=== PATIENT | female | born 1990 | race Caucasian/White ===

== ENCOUNTER 2024-04-21 07:54 | Outpatient (AMB) | payer OTHER, SELFPAY ==
--- OUTSIDE RECORDS SUMMARY | 2024-04-21 07:57 | XMS_ITS | Clinical Summary ---
Author Organization [facility] Address [address] [place] [address] Care Team Providers Care Family Nurse Practitioner Name Role Phone Melissa Paulino NP Primary Care Provider [phone]- [phone] Allergies No known active allergies Medications No known medications Family History Medical History Relation Name Comments Ulcerative colitis Brother Colon cancer Neg Hx Crohn's disease Neg Hx Relation Name Status Comments Brother Alive Social History Tobacco Use Types Packs/Day Years Used Date Smoking Tobacco: Never Smokeless Tobacco: Never Alcohol Use Standard Drinks/Week Comments No 0 (1 standard drink = 0.6 oz pur e alcohol) Sex and Gender Information Value Date Recorded Sex Assigned at Not on file Gender Identity Not on file Sexual Orientation Not on file Last Filed Vital Signs Vital Sign Reading Time Taken Comments Blood Pressure 106/72 02/04/2017 10:20 AM EST Pulse 79 02/04/2017 10:20 AM EST Temperature 36.2 ??C (97.2 ??F) 02/04/2017 8:14 AM ES T Respiratory Rate 15 02/04/2017 10:20 AM EST Oxygen Saturation 99% 02/04/2017 10:20 AM EST Inhaled Oxygen Concentration - - Weight 97.5 kg (215 lb) 02/03/2017 1:23 PM EST Height 149.9 cm (4' 11 ) 02/03/2017 1:23 PM EST Body Mass Index 43.42 02/03/2017 1:23 PM EST Plan of Treatment Health Maintenance Due Date Last Done Comments Hepatitis B Vaccines (1 of 3 - 3-dose series) 1991 Hepatitis C Screening 1991 COVID-19 Vaccine (#1) 05/28/1992 Depression Screening 2003 Preventative Health Evaluation 11/27/2009 DTap / Tdap / Td (1 - Tdap) 11/27/2010 Cervical Cancer Screening (P ap Smear) 11/27/2012 Influenza Vaccine (#1) 2023 Pneumococcal Vaccine Aged Out No long er eligible based on patient's age to complete this topic RSV Ped < 20 months Aged Out No longe r eligible based on patient's age to complete this topic Advance Directives For more information, please contact: [phone] Latest Code Status on File Code Status Date Activated Date Inactivated Comments Full Code 02/04/2017 10:44 AM 02/04/2017 5:04 PM Th is code status was ascertained in the following way: discussion with patient . Care Teams Family Nurse Practitioner Relationship Specialty Start Date End Date Melissa Paulino NP [address] [place] [address] PCP - General Nurse Practitioner 05/19/16
--- OUTSIDE RECORDS SUMMARY | 2024-04-21 07:57 | XMS_ITS ---
Author Name [facility] Organization Unknown Results Test Name/Text Value Interpretation Date Range Source AST SerPl-cCnc 25U/L Normal [id number] 10 - 50 HH CCT ALT SerPl-cCnc 44U/L Normal 10 - 50 HH CCT Creat SerPl-mCnc 1.1mg/dL Normal 0.4 - 1.1 [facility] Globulin Ser Calc-mCnc 1.9g/dL Normal 1.5 - 3.9 [facility] CO2 SerPl-sCnc 26mmol/L Normal 22 - 33 HH CCT Albumin/Glob SerPl 2.3Ratio Normal 1 - 3 [facility] Anion Gap Bld-sCnc 13 Normal 7 - 17 [facility] Potassium SerPl-sCnc 4.3mmol/L Normal 3.4 - 5.3 [facility] Bilirub SerPl-mCnc 0.6mg/dL Normal 0.2 - 1 [facility] Calcium SerPl-mCnc 9.3mg/dL Normal 8.7 - 10 .5 [facility] BUN SerPl-mCnc 12mg/dL Normal 8 - 21 HH CCT ALP SerPl-cCnc 103U/L Normal 32 - 122 HH CCT GFR/BSA.pred SerPlBld RES-GOD-PgEBoq 58 Below low normal [id number] 59 - [facility] Chloride SerPl-sCnc 101mmol/L Normal [id number] 98 - 10 7 [facility] BUN/Creat SerPl 11Ratio Normal [id number] 10 - 25 H [facility] Albumin SerPl-mCnc 4.4g/dL Normal [id number] 3.5 - 5 [facility] Prot SerPl-mCnc 6.3g/dL Normal 6.3 - 8.3 H [facility] Glucose SerPl-mCnc 96mg/dL Normal [id number] 65 - 99 [facility] Sodium SerPl-sCnc 140mmol/L Normal [id number] 136 - 145 [facility] Neutrophils num Bld Auto 4.1Thou/uL Normal [id number] 2 - 7.5 [facility] WBC num Bld Auto 5.4Thou/uL Normal [id number] 4 - 11 [facility] MCHC RBC Auto-mCnc 33g/dL Normal [id number] 30 - 36 [facility] Hct VFr Bld Auto 45.2% Normal [id number] 35 - 47 [facility] RBC num Bld Auto 5.11Mil/uL Normal [id number] 4 - 5.4 [facility] RDW RBC Auto-Rto 12.7% Normal [id number] 11.5 - 14. 5 [facility] PMV Bld Auto 9.2fL Normal [id number] 7.5 - 12.[address] MCH RBC Qn Auto 29.2pg Normal [id number] 27 - 31 H [facility] Mixed Mononuclear, Absolute 1Thou/uL Normal [id number] 0.2 - 1.9 [facility] Platelet num Bld Auto 160Thou/uL Normal [id number] 150 - 450 [facility] Neutrophils/leuk NFr Bld Auto 74.9% Normal [id number] [facility] Mixed Mononuclear 11.4% Normal [id number] [facility] MCV RBC Auto 89fL Normal [id number] 80 - 100 [facility] T Lymphocytes/leuk NFr Bld Auto 13.7% Normal [id number] [facility] Lymphocytes num Bld Auto 1Thou/uL Below low normal [id number] 1.5 - 4.5 [facility] Hgb Bld-mCnc 14.9g/dL Normal [id number] 11.7 - 15.7 HH CCT Monocytes # Bld Auto 490cells/uL Normal [id number] 200 - 950 [facility] PMV Bld Bandar-Barrett 10fL Normal [id number] 7.5 - 12 .5 [facility] Neutrophils # Bld Auto 4486cells/uL Normal [id number] 1500 - 7800 [facility] Eosinophil # Bld Auto 58cells/uL Normal [id number] 15 - 500 [facility] MCHC RBC Auto-mCnc 33g/dL Normal [id number] 32 - 36 [facility] Basophils # Bld Auto 29cells/uL Normal [id number] 0 - 2 00 [facility] Monocytes/leuk NFr Bld Auto 6.8% Normal [id number] [facility] WBC # Bld Auto 7.2Thousand/uL Normal [id number] 3.8 - 1 0.8 [facility] Hct VFr Bld Auto 46% Above high normal 35 - 45 [facility] RDW RBC Auto-Rto 13.1% Normal [id number] 11 - 15 [facility] Eosinophil/leuk NFr Bld Auto 0.8% Normal [id number] [facility] MCH RBC Qn Auto 30.2pg Normal [id number] 27 - 33 Q [facility] Basophils/leuk NFr Bld Auto 0.4% Normal [id number] [facility] Lymphocytes # Bld Auto 2138cells/uL Normal [id number] 850 - 3900 [facility] RBC # Bld Auto 5.03Million/uL Normal [id number] 3.8 - 5 .1 [facility] Neutrophils/leuk NFr Bld Auto 62.3% Normal [id number] [facility] Platelet # Bld Auto 226Thousand/uL Normal 14 0 - 400 [facility] MCV RBC Auto 91.5fL Normal [id number] 80 - 100 [facility] T Lymphocytes/leuk NFr Bld Auto 29.7% Normal [id number] [facility] Hgb Bld-mCnc 15.2g/dL Normal 11.7 - 15.5 QU EST HbA1c MFr Bld 6%oftotalHgb Above high normal [id number] - 5.7 [facility] LDLc SerPl Calc-mCnc 201mg/dL(calc) Above high normal [id number] [facility] Cholest/HDLc SerPl 4.5(calc) Normal [id number] - 5 [facility] HDLc SerPl-mCnc 64mg/dL Normal [id number] - Q [facility] NonHDLc SerPl-mCnc 222mg/dL(calc) Above high normal [id number] - 130 [facility] Cholest SerPl-mCnc 286mg/dL Above high normal [id number] - 200 [facility] Trigl SerPl-mCnc 92mg/dL Normal [id number] - 150 [facility] TSH SerPl-aCnc 3.08mIU/L Normal [id number] 0.4 - 4.5 QU EST BUN/Creat SerPl SEE NOTE: Normal [id number] 6 - 22 Q [facility] eGFRcr SerPlBld CKD-EPI 2021 63mL/min/1.73m 2 Normal [id number] - [facility] CO2 SerPl-sCnc 27mmol/L Normal [id number] 20 - 32 QU EST Sodium SerPl-sCnc 140mmol/L Normal [id number] 135 - 146 [facility] Chloride SerPl-sCnc 102mmol/L Normal [id number] 98 - 11 0 [facility] Glucose SerPl-mCnc 94mg/dL Normal [id number] 65 - 99 [facility] BUN SerPl-mCnc 21mg/dL Normal [id number] 7 - 25 QU EST Potassium SerPl-sCnc 4.2mmol/L Normal [id number] 3.5 - 5.3 [facility] Creat SerPl-mCnc 1.02mg/dL Normal [id number] 0.5 - 1.05 [facility] Calcium SerPl-mCnc 9.9mg/dL Normal [id number] 8.6 - 10 .4 [facility] Vit B12 SerPl-mCnc 356pg/mL Normal [id number] 200 - 11 00 [facility] Magnesium SerPl-mCnc 2mg/dL Normal [id number] 1.5 - 2.5 [facility] TIBC SerPl-mCnc 390mcg/dL(calc ) Normal [id number] 250 - 450 [facility] Iron Satn MFr SerPl 34%(calc) Normal [id number] 16 - 45 [facility] Iron SerPl-mCnc 133mcg/dL Normal [id number] 45 - 160 Q [facility] Ferritin SerPl-mCnc 38ng/mL Normal [id number] 16 - 23 2 [facility] Platelet # Bld Auto 206Thousand/uL Normal [id number] 14 0 - 400 [facility] Hct VFr Bld Auto 49.5% Above high normal [id number] 35 - 45 [facility] Basophils # Bld Auto 29cells/uL Normal [id number] 0 - 2 00 [facility] Eosinophil # Bld Auto 80cells/uL Normal [id number] 15 - 500 [facility] MCV RBC Auto 90.5fL Normal [id number] 80 - 100 [facility] WBC # Bld Auto 7.3Thousand/uL Normal [id number] 3.8 - 1 0.8 [facility] Eosinophil/leuk NFr Bld Auto 1.1% Normal [id number] [facility] Hgb Bld-mCnc 16.3g/dL Above high normal [id number] 11.7 - 15.5 [facility] Lymphocytes # Bld Auto 2205cells/uL Normal [id number] 850 - 3900 [facility] PMV Bld Bandar-Barrett 10.7fL Normal [id number] 7.5 - 12 .5 [facility] Monocytes # Bld Auto 482cells/uL Normal [id number] 200 - 950 [facility] Lymphocytes/leuk NFr Bld Auto 30.2% Normal [id number] [facility] MCH RBC Qn Auto 29.8pg Normal [id number] 27 - 33 Q [facility] RBC # Bld Auto 5.47Million/uL Above high normal [id number] 3.8 - 5.1 [facility] RDW RBC Auto-Rto 13% Normal [id number] 11 - 15 [facility] Neutrophils/leuk NFr Bld Auto 61.7% Normal [id number] [facility] Monocytes/leuk NFr Bld Auto 6.6% Normal [id number] [facility] MCHC RBC Auto-mCnc 32.9g/dL Normal [id number] 32 - 36 [facility] Neutrophils # Bld Auto 4504cells/uL Normal [id number] 1500 - 7800 [facility] Basophils/leuk NFr Bld Auto 0.4% Normal [id number] [facility] History of Medication Use Medication Directions Dispensed Refills Start Date End Date Stat us azithromycin 250 mg tablet 5 completed rosuvastatin 5 mg tablet 5 completed benzonatate 100 mg capsule Take 1 capsule 3 times a day by oral route for 10 days. 03/31/2024 active benzonatate 100 mg capsule active amoxicillin 875 mg-potassium clavulanate 125 mg tablet active Etodolac 400mg Tablet 08/31/2022 active FLUoxetine (PROzac) 20 MG capsule Take 1 capsule (20 mg total) by mouth daily. 08/06/2022 4 active clascoterone (Winlevi) 1 % cream APPLY FACE TWICE A DAY ] 12/14/2022 5 aborted triamcinolone acetonide 40 mg/mL suspension for injection Take 40 mg by injection route. 05/28/2023 4 active fluoxetine 20 mg capsule TAKE 1 CAPSULE BY MOUTH EVERY DAY active biotin 1,000 mcg tablet,chewable Chew by mouth. activ e cyclobenzaprine 10 mg tablet take 1 tablet (10 mg) by oral route at bedtime as needed for muscle tightness 01/31/2020 1 completed benzonatate 200 mg capsule 200 mg 3 times a day by oral route. 05/29/2022 4 completed prochlorperazine maleate 10 mg tablet 5 mg every 6 hours by oral route. 12/10/2020 4 completed fluconazole 100 mg tablet TAKE 1 TABLET BY MOUTH DAILY FOR 10 DAYS. 4 completed fluticasone propionate 50 mcg/actuation nasal spray,suspension SPRAY 1 SPRAY INTO EACH NOSTRIL EVERY DAY active benzonatate 200 mg capsule TAKE 1 CAPSULE BY MOUTH THREE TIMES A DAY NEEDED FOR COUGH 4 completed pantoprazole 20 mg tablet,delayed release take 1 tablet (20 mg) by oral route once daily 05/22/2021 2 completed gabapentin (NEURONTIN) 300 MG capsule Take 1 capsule (300 mg total) by mouth 2 times a day. take 3 tablets per day first week, then taper as tolerated to 200mg. 05/08/2021 4 aborted etodolac 400 mg tablet Take 400 mg twice a day by oral route. 05/21/2022 4 completed BinaxNOW COVID-19 Ag Self Test kit 4 completed LORazepam (ATIVAN) 0.5 MG tablet Take 1 tablet (0.5 mg total) by mouth 3 times daily (every 8 hours) as needed for anxiety. 12/10/2020 4 active clotrimazole-betametha sone (LOTRISONE) cream APPLY THIN FILM EXTERNALLY TO AFFECTED AREA 2 TIMES DAILY NEEDED 05/25/2022 active Veozah 45 MG tablet Take 1 tablet (45 mg total) by mouth daily. 08/03/2023 active valacyclovir 1 gram tablet Take 1 Tablet ORAL three times each day for 7 days. 11/13/2016 7 completed fluticasone propionate (FLONASE) 50 mcg/actuation nasal spray SPRAY 1 SPRAY INTO EACH NOSTRIL EVERY DAY 5 aborted meloxicam (MOBIC) 15 MG tablet Take 1 tablet (15 mg total) by mouth daily. for 30 days 07/30/2023 active fluticasone propionate 50 mcg/actuation nasal spray,suspension 1 {spray} by nasal route. 05/29/2022 4 completed gabapentin (NEURONTIN) 100 MG capsule Take 3 capsules (300 mg total) by mouth daily. take 3 tablets per day first week, then taper as tolerated to 200mg. 06/01/2022 4 active meloxicam (MOBIC) 15 mg tablet Take 1 tablet (15 mg total) by mouth daily. for 30 days 07/30/2023 5 aborted valACYclovir (VALTREX) 500 MG tablet TAKE 1 TABLET (500 MG TOTAL) BY MOUTH DAILY. 08/06/2022 active clobetasol 0.05 % topical ointment APPLY A THIN FILM EXTERNALLY TO CLEAN, DRY SKIN TWICE DAILY UP TO 4 WEEKS active meloxicam 15 mg tablet Take 1 tablet every day by oral route as needed. 07/30/2023 4 active Kenalog 10 mg/mL suspension for injection Take 2 mL by injection route. 01/13/2023 4 active Herceptin 150 mg intravenous solution infuse 2 mg/kg over 30 minute(s) by intravenous route once every 3 weeks 10/22/2021 3 completed clobetasoL (TEMOVATE) 0.05 % ointment Apply topically 2 (two) times a day. APPLY A THIN FILM EXTERNALLY TO CLEAN, DRY SKIN TWICE DAILY UP TO 4 WEEKS 12/29/2023 active gabapentin 100 mg capsule TAKE 3 CAPSULES (300 MG TOTAL) BY MOUTH DAILY FOR FIRST WEEK, THEN TAPER TOLERATED TO 200MG. 4 completed LORazepam (ATIVAN) 0.5 mg tablet as needed. 12/10/2020 active fluconazole 100 mg tablet active proCHLORPERAZINE (COMPAZINE) 10 MG tablet Take 0.5 tablets (5 mg total) by mouth 4 times daily (every 6 hours) as needed. 12/10/2020 4 active meloxicam 15 mg tablet active Kenalog 10 mg/mL suspension for injection active oxyCODONE (ROXICODONE) 5 MG immediate release tablet Take 1 tablet (5 mg total) by mouth 4 times daily (every 6 hours) as needed for moderate pain or severe pain. Max Daily Amount: 20 mg 12/25/2020 3 active acetaminophen (TYLENOL) 500 MG tablet Take 2 tablets (1,000 mg total) by mouth 4 times daily (every 6 hours) as needed for mild pain. 11/05/2020 active clobetasol (TEMOVATE) 0.05 % ointment APPLY A THIN FILM EXTERNALLY TO CLEAN, DRY SKIN TWICE DAILY UP TO 4 WEEKS 05/25/2022 active letrozole (FEMARA) 2.5 MG tablet Take 1 tablet (2.5 mg total) by mouth daily 06/13/2021 active valACYclovir (VALTREX) 500 mg tablet Take 1 tablet (500 mg total) by mouth 1 (one) time each day. 01/24/2024 active PANTOprazole (PROTONIX) 40 MG EC tablet Take 1 tablet (40 mg total) by mouth every morning. 06/25/2020 active Probiotic 04/16/2020 4 active FLUoxetine (PROzac) 20 mg capsule Take 1 capsule (20 mg total) by mouth daily. 08/09/2023 4 aborted clobetasol 0.05 % topical ointment APPLY A THIN FILM EXTERNALLY TO CLEAN, DRY SKIN TWICE DAILY UP TO 4 WEEKS active clotrimazole 10 mg chelsi DISSOLVE 1 CHELSI SLOWLY IN THE MOUTH 5 TIMES A DAY FOR 14 DAYS. 4 completed FLUoxetine (PROzac) 20 mg capsule Take 1 capsule (20 mg total) by mouth 1 (one) time each day. 01/24/2024 active clotrimazole-betametha sone (LOTRISONE) 1-0.05 % cream Apply topically 2 (two) times a day if needed (APPLY THIN FILM EXTERNALLY TO AFFECTED AREA 2 TIMES DAILY NEEDED). 12/29/2023 active Winlevi 1 % topical cream APPLY FACE TWICE A DAY ] 4 completed pantoprazole (PROTONIX) 40 mg EC tablet TAKE 1 TABLET BY MOUTH EVERY DAY 08/02/2023 active cyanocobalamin (VITAMIN B-12) 500 MCG tablet Take 1 tablet (500 mcg total) by mouth daily. active Winlevi 1 % topical cream APPLY FACE TWICE A DAY ] active Belsomra 10 mg tablet Take 1 Tablet ORAL daily. take 30 min prior to sleep, no alcohol 04/08/2017 9 completed Allergies Allergen Reaction Severity Comment Documented Date Source Statu s BELSOMRA palpitations ENS_GRANBYCT Problems Problem Status Onset Date Problem Type Date of Resolution Source Impaired fasting glycemia active ProblemAct ENS_GRANBYC T Insomnia active ProblemAct ENS_GRANB YC T Anemia active ProblemAct ENS_GRANB YC T Primary malignant neoplasm of female right breast active ProblemAct ENS_GRANBYC T Parosmia active ProblemAct ENS_GRANB YC T Malignant neoplasm of upper-outer quadrant of right breast in female, estrogen receptor positive active 2020-08-16 9 ProblemAct [facility] Malignant neoplasm of upper-outer quadrant of right breast in female, estrogen receptor positive active 2023-09-17 8 ProblemAct [facility]_THSFRAN Arthritis of first carpometacarpal joint of right hand active 2023-01-16 7 ProblemAct ENS_AONECT Diverticulosis of colon active 1 ProblemAct ENS_GRANBYC T Lichen sclerosus active ProblemAct EN S_GRANBYC T Human papilloma virus infection active 6 ProblemAct ENS_GRANBYC T 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 2020-10-17 1 ProblemAct [facility] Lichen sclerosus active 2023-07-18 4 ProblemAct [facility]_THSFRAN Current mild episode of major depressive disorder, unspecified whether recurrent (CMS/HCC) active EncounterDiagnosisAct CT_THS ANGELO Gastroesophageal reflux disease active 2022-10-16 8 ProblemAct [facility]_THSFRAN Sprain of multiple digits of right hand including sprain of thumb active 2021-09-15 0 ProblemAct [facility]_THSFRAN Epigastric pain active 2019-06-17 0 ProblemAct [facility]_THSFRAN Anxiety with depression active 2023-07-18 4 ProblemAct [facility]_THSFRAN Disorder of shoulder active 2023-07-17 4 ProblemAct ENS_AONECT Synovitis active 2022-12-17 9 ProblemAct ENS_AONECT Impingement syndrome of right shoulder region active 2023-05-17 2 ProblemAct ENS_AONECT Impingement syndrome of left shoulder region active 2023-05-17 2 ProblemAct ENS_AONECT Malignant neoplasm of upper-outer quadrant of female breast active 2020-08-16 9 ProblemAct ENS_AONECT Sprain of metacarpophalangeal joint active 2022-12-17 9 ProblemAct ENS_AONECT Post-menopause active 2020-03-19 2 ProblemAct CTTHNEMG Family history of breast cancer active 2018-06-17 0 ProblemAct CTTHNEMG Cervical cancer screening active 2019-07-17 7 ProblemAct CTTHNEMG History of breast reconstruction active 2021-07-17 0 ProblemAct CTTHNEMG Hx of diverticulitis of colon active 8 ProblemAct CTTHNEMG BMI 34.0-34.9,adult active 2023-07-18 4 ProblemAct CTTHNEMG Ingrowing nail active 2023-03-19 9 EncounterDiagnosisAct ENS_PODCRCT Hx of malignant neoplasm of breast active 5 ProblemAct [facility] Diverticulosis of large intestine without hemorrhage active 2019-06-17 0 ProblemAct CT_THSFRAN 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-10-17 1 ProblemAct ENS_AONECT Sprain of interphalangeal joint of finger active 2022-12-17 9 ProblemAct ENS_AONECT History of bilateral breast cancer active 2022-07-17 2 ProblemAct CTTHNEMG Family history of high blood pressure active 2018-06-17 0 ProblemAct CTTHNEMG Encounter for gynecological examination with abnormal finding active 2019-07-17 7 ProblemAct CTTHNEMG Cellulitis of right toe, paronychia active 2022-01-16 0 ProblemAct ENS_PODCRCT Recurrent major depression in remission active ProblemAct ENS_ GRANBYC T Depression active 4 ProblemAct CT_THSFRAN Arthritis of left acromioclavicular joint active 2023-11-17 8 ProblemAct ENS_AONECT Menopausal flushing active 6 ProblemAct ENS_GRANBYC T History of bilateral mastectomy active 2 ProblemAct ENS_GRANBYC T Hyperlipidemia active ProblemAct ENS_ GRANBYC T History of malignant neoplasm of breast active 5 ProblemAct ENS_AONECT Pain in left toe(s) active 2023-03-19 9 EncounterDiagnosisAct ENS_PODCRCT Pain in right toe(s) active 2023-03-19 9 EncounterDiagnosisAct ENS_PODCRCT Acne vulgaris active ProblemAct ENS_G RANBYC T Steatosis of liver active ProblemAct ENS_GRANBYC T Genuine stress incontinence active ProblemAct ENS_GRANBYC T Hiatal hernia active 2022-10-16 8 ProblemAct CT_THSFRAN Anogenital herpesviral infection active ProblemAct ENS_GRANBYC T GBS carrier active 2019-04-18 0 ProblemAct CT_THSFRAN Cystocele active ProblemAct ENS_GRANB YC T HSV (herpes simplex virus) anogenital infection active 2022-07-17 2 ProblemAct CT_THSFRAN Cervical cancer screening active 9 ProblemAct CT_THSFRAN Irritable bowel syndrome with both constipation and diarrhea active 2019-04-18 0 ProblemAct CT_THSFRAN Epigastric abdominal tenderness active 2019-06-17 0 ProblemAct CT_THSFRAN Menopausal depression active 2018-04-15 5 ProblemAct CT_THSFRAN Class 1 obesity due to excess calories with serious comorbidity and body mass index (BMI) of 33.0 to 33.9 in adult active 9 ProblemAct CT_THSFRAN H/O bilateral mastectomy active 2021-07-17 0 ProblemAct CT_THSFRAN History of PCR DNA positive for HSV2 active 2021-07-17 0 ProblemAct CTTHNEMG Former light tobacco smoker active 6 ProblemAct ENS_GRANBYC T Pain of right shoulder joint active ProblemAct ENS_GRANBYC T Body mass index 30+ - obesity active ProblemAct ENS_GRANBYC T Subacute vulvitis active 2021-07-17 0 ProblemAct CT_THSFRAN Cellulitis of left toe, paronychia active 2022-01-16 0 ProblemAct ENS_PODCRCT Iron deficiency active ProblemAct ENS _GRANBYC T Pain of left shoulder joint active ProblemAct ENS_GRANBYC T History of herpes zoster active 2022-12-0 2 ProblemAct ENS_JWC T Immunizations Vaccine Date Source Lot Number Status zoster vaccine subunit 02/28/2020 ENS_GRANBYCT completed SARS-COV-2 (COVID-19) vaccin e, UNSPECIFIED 06/21/2020 ENS_GRANBYCT completed MMR 12/15/1988 [facility] completed Pfizer SARS-CoV-2 COVID-19, mRNA, LNP-S, preservative free 2020 CT_THSFRAN completed Covid-19 (Pfizer) Dilution Required 05/31/2020 [facility] [id number] completed Influenza, injectable, quadr ivalent, preservative free 10/22/2021 ENS_GRANBYCT [id number] completed influenza, seasonal, injectable 11/16/2019 ENS_GRANBYCT completed influenza, seasonal, injectable 11/06/2020 E[facility]_GRANBYCT completed influenza virus vaccine, uns pecified formulation 11/10/2022 ENS_GRANBYCT completed SARS-COV-2 (COVID-19) vaccin e, UNSPECIFIED 11/30/2022 E[facility]_GRANBYCT completed zoster vaccine subunit 08/06/2020 E[facility]_GRANBYCT completed tetanus toxoid, reduced diph theria toxoid, and acellular pertussis vaccine, adsorbed 09/02/2016 E[facility]_GRANBYCT completed influenza, seasonal, injectable 10/21/2018 ENS_GRANBYCT completed DT 06/20/1998 [facility] completed PPD Test 11/13/1998 [facility] completed Covid-19 (Pfizer) Dilution Required 06/21/2020 [facility] [id number] completed Covid-19 (Pfizer 12+) Fall 2022 0.3mL 11/30/2022 [facility] [id number] completed influenza virus vaccine, uns pecified formulation 11/16/2023 ENS_GRANBYCT completed influenza, seasonal, injectable 11/15/2016 ENS_GRANBYCT completed SARS-COV-2 (COVID-19) vaccin e, UNSPECIFIED 05/31/2020 ENS_GRANBYCT completed
--- OUTSIDE RECORDS SUMMARY | 2024-04-21 07:57 | XMS_ITS | Encounter Summary ---
Author Organization [facility] Address [address] [place] [address] Care Team Providers Care Director Of Transportation Name Role Phone Pcp, No Primary Care Provider Agustina Moscoso MD Primary Care Provider Unavailable Encounter Details Date Type Department Care Team (Latest Contact Info) Description 02/10/2020 Lab Requisition [facility] [address] Through [address] [place] [address] [address] [place] [address] Kyler Al PA-C [address] [place] [id number] Encounter for laboratory testing for COVID-19 virus Social History Tobacco Use Types Packs/Day Years Used Date Smoking Tobacco: Never Smokeless Tobacco: Never Alcohol Use Standard Drinks/Week Comments Never 0 (1 standard drink = 0.6 oz pur e alcohol) AUDIT-C Answer Date Recorded Frequency of Alcohol Consumption Never 11/14/2018 Average Number of Drinks Not on file 019 Frequency of Binge Drinking Not on file 10/18 Sex and Gender Information Value Date Recorded Sex Assigned at Not on file Gender Identity Female 08/13/2020 10:36 AM EDT Sexual Orientation Homosexual (lesbian or warren) 0 08/13/2020 10:36 AM EDT documented as of this encounter Plan of Treatment Not on file documented as of this encounter Procedures Procedure Name Priority Date/Time Associated Diagnosis Comments COVID-19 (SARS-COV-2) - SEMA4 LAB Routine 02/10/2020 5:50 PM EST Encounter for laboratory testing for COVID-19 virus [ICD-10-CM] documented in this encounter Results * COVID-19 (SARS-COV-2) (SEMA) (02/10/2020 5:50 PM EST) COVID-19 RT-PCR NOT-DETEC ANNA Not-Detec anna 02/13/2020 11:40 AM EST [facility] Comment:Interpretation: The viral RNA was not detected, making the COVID-19 diagnosis less likely. Clinical correlation is highly recommended.Final report signed by Alla Ryder, Ph.D., Laboratory DirectorTests performed at [facility] Nasopharyngeal swab / Unknown 02/10/2020 5:50 PM EST 02/10/2020 5:50 PM EST Narrative [facility] - 02/13/2020 11:40 AM EST Performed by [facility] [address] [place] [address], CLIA# [id number] and [place] License# [id number] Kyler Al PA-C MICROBIOLOGY - NERAL ORDERABLES [facility] documented in this encounter Visit Diagnoses Diagnosis Encounter for laboratory testing for COVID-19 virus documented in this encounter Care Teams Director Of Transportation Relationship Specialty Start Date End Date Pcp, No PCP - General General Medicine 07/21/18 02/23/22 Agustina Sanford MD PCP - General 02/24/22 documented as of this encounter
--- OUTSIDE RECORDS SUMMARY | 2024-04-21 07:57 | XMS_ITS | Clinical Summary ---
Author Organization [facility] Address [address] [id number] Care Team Providers Care Art History Instructor Name Role Phone Tc Moreno MD Primary Care Provider Unavaila ble Tc Moreno MD Unavailable Unavailable Immunizations Name Administration Dates Next Due DTP 12/25/1996, 4,05/21/1992,03/26/1992, HPV4 (Gardasil 4) 04/04/2007,11/15/2006,09/15/19 07 Hep B (adult) 12/13/1992,07/17/1992,06/17/1992 Hib (PRP-OMP) 05/30/1993,05/21/1992,03/26/1992 ,01/24/1992 MMR 12/26/2003,05/30/1993 Meningococcal ACWY (Menactra) 09/28/2009 OPV 12/25/1996,08/07/1993,03/26/1992 ,01/24/1992 State H1N1 Vaccine,injection 01/02/2009 Td (adult), adsorbed 12/26/2003 Tdap 09/28/2009 Social History Tobacco Use Types Packs/Day Years Used Date Smoking Tobacco: Never Assessed Comments Unknown Sex and Gender Information Value Date Recorded Sex Assigned at Not on file Legal Sex Female 8:34 PM EDT Gender Identity Not on file Sexual Orientation Not on file Plan of Treatment Health Maintenance Due Date Last Done Comments Hepatitis C Screening 1991 Pap Smear 2007 DTaP/Tdap/Td (7 - Td or Tdap) 09/29/2019 09/28/2009, 12/26/2003, 12/25/1996, Additional history exists COVID-19 Vaccine ( season) 2023 Influenza (#1) 2023 Zoster (Shingrix) (1 of 2) 11/27/2041 Hep B Completed 12/13/1992, 03/1992, 06/17/1992 Hib Completed 05/30/1993, 07/1992, 03/26/1992, Additional history exists HPV Vaccine Completed 04/04/2007, 02/2006, 09/14/2006 Meningococcal ACWY Completed 09/28/2009 Hep A Aged Out No longer eligi ble based on patient's age to complete this topic Pneumococcal Aged Out No longer eligi ble based on patient's age to complete this topic Care Teams Art History Instructor Relationship Specialty Start Date End Date Tc Moreno MD PCP - General 09/21/22 Tc Moerno MD PCP - Backup PCP Pediatrics 03/18/23
--- OUTSIDE RECORDS SUMMARY | 2024-04-21 07:57 | XMS_ITS | Clinical Summary ---
Author Organization [facility] Address [address] [place] [address] Care Team Providers Care Owner Operator Name Role Phone Agustina Sanford MD Primary Care Provider Unavailable Allergies No known active allergies Medications Medication Sig Dispensed Refills Start Date End Date Status ondansetron (ZOFRAN-ODT) 4 MG disintegrating tabletIndications:Viral gastroenteritis Take 1 tablet (4 mg total) by mouth 3 times daily (every 8 hours) as needed for nausea or vomiting. Place tablet on tongue to dissolve. 10 tablet 07/21/2018 Active Family History Medical History Relation Name Comments Ulcerative colitis Brother Levar Depression Father Seven Kidney disease Paternal Aunt Nara Diabetes Paternal Grandmother Berta Relation Name Status Comments Brother Levar Father Seven Paternal Aunt Nara Paternal Grandmother Berta Social History Tobacco Use Types Packs/Day Years Used Date Smoking Tobacco: Never Smokeless Tobacco: Never Alcohol Use Standard Drinks/Week Comments Yes 0 (1 standard drink = 0.6 oz pure alcohol) Social, one or twice per month, single drink AUDIT-C Answer Date Recorded Frequency of Alcohol Consumption Never 11/14/2018 Average Number of Drinks Not on file 019 Frequency of Binge Drinking Not on file 10/18 Sex and Gender Information Value Date Recorded Sex Assigned at Not on file Gender Identity Female 08/13/2020 10:36 AM EDT Sexual Orientation Homosexual (lesbian or warren) 0 08/13/2020 10:36 AM EDT Last Filed Vital Signs Vital Sign Reading Time Taken Comments Blood Pressure 120/84 07/21/2018 6:58 PM EDT Pulse 81 07/21/2018 6:58 PM EDT Temperature 36.6 ??C (97.8 ??F) 07/21/2018 6:58 PM ED T Respiratory Rate - - Oxygen Saturation 96% 07/21/2018 6:58 PM EDT Inhaled Oxygen Concentration - - Weight 106 kg (233 lb) 08/14/2020 8:52 AM EDT Height 151.1 cm (4' 11.5 ) 08/14/2020 8:52 AM ED T Body Mass Index 46.27 08/14/2020 8:52 AM EDT Plan of Treatment Health Maintenance Due Date Last Done Comments Hepatitis C Virus Screening 1991 HIV Screening 11/27/2004 DTaP/Tdap/Td Vaccines (1 - Tdap) 11/27/2010 Hepatitis B Vaccines (1 of 3 - 19+ 3-dose series) 11/27/2010 Pap Smear (Ages 21-65) 03/22/2023 03/22/2020 Influenza Vaccine 09/16/2023 COVID-19 Vaccine ( - 2023-2 5 season) 2023 12/20/2020, 06/15/2020, 05/18/2020 HPV Vaccines Aged Out No longer eligi ble based on patient's age to complete this topic Pneumococcal Vaccine: Pediatric (0-5 Years) and At-Risk Patients (6 to 49 Years) Aged Out No longer eligible b ased on patient's age to complete this topic Procedures Procedure Name Priority Date/Time Associated Diagnosis Comments THINPREP PAP TEST (RIVET MACHINE OPERATOR) WITH HPV REFLEX Routine 03/22/2020 12:00 AM EST from Last 3 Months or Most Recently Relevant to Health Maintenance Results * ThinPrep Pap Test (Mechanical Research Engineer) with HPV Reflex (03/22/2020 12:00 AM EST) Report Report [facility] Comment: Final Gynecological Cytology Report ThinPrep Pap Test with HPV Reflex SPECIMEN ADEQUACY: SATISFACTORY FOR EVALUATION; ENDOCERVICAL/TRANSFORMATION ZONE COMPONENT PRESENT. INTERPRETATION: NEGATIVE FOR INTRAEPITHELIAL LESION OR MALIGNANCY. Electronically Signed: ??Nuria Loyd CT (ASCP) CLINICAL INFORMATION: LMP: NG Specimen Source: ??Cervix, Endocervix CPT Codes: 00245 ICD Codes: Z12.4 Other 03/22/2020 03/23/2020 4:3 8 AM EST Kyler Bone MD LAB AMB PATH/CYTO ORDERABLES [facility] [address] [place], [place] from Last 3 Months or Most Recently Relevant to Health Maintenance Care Teams Owner Operator Relationship Specialty Start Date End Date Agustina Sanford MD PCP - General 02/24/22
--- NOTE | 2024-04-21 08:06 | MHC.PC.OV ---
Vital Signs 04/21/24 08:08 Height 5 ft 0.24 in Weight 216 lb 4 oz BMI 41.9 BP 120/60 Blood Pressure Location Lt brachial Position Sitting Pulse 70 Pulse Source Pulse Oximeter Temp 97.3 F Temp Source Temporal Artery Scan Pulse Oximetry (%) 95 Oxygen Delivery Method Room Air Intake Visit Reasons: establish care Intake Note: Patient is a new patient here to establish care for ADHD. Transferring care from [facility]. Medical records have been requested and have received. Route Driver Coin Machines Required: No Lamp Stack Developer: Not Required per policy Accompanied by: Self / Same As Patient Allergies No Known Allergies Allergy (Verified 04/21/24 08:15) Medication List - Last Reconciled 04/21/24 by Buffy Gibson PA-C dextroamphetamine-amphetamine 10 mg (Adderall) 10 mg PO TID Tobacco use date assessed: 04/21/24 Dental Screening Dental Screen Date: 04/21/24 Did you have a dental visit in the last 12 months?: Yes Did you have a dental problem in the last 6 months where you did not have access to dental care?: No Was dental information given to patient?: Patient has dentist HPI establish care HPI Details 33 year old female coming to the office for the first time. Patient was last seen at [facility] last seen a couple of years ago. She has a psychiatrist who she has been seen twice and has been managed on Adderall for her ADHD. She was seen by her tea leaf reader earlier this month had abnormal Pap smear and is undergoing HPV testing. She follows with [facility]necology [facility] [place]. The patient is a 33-year-old female presenting with chronic symptoms and recent ADHD diagnosis. ADHD treatment with Adderall is ongoing with dose variability. She experiences constipation, with infrequent bowel movements and bloating, using dietary interventions including probiotics and teas. Reports chronic cough exacerbated when supine and early in the morning. Despite a consistent exercise routine, she struggles with abdominal weight loss. 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 1. Little interest or pleasure in doing things: not at all 2. Feeling down, depressed, or hopeless: not at all 3. Trouble falling or staying asleep, or sleeping too much: not at all 4. Feeling tired or having little energy: not at all 5. Poor appetite or overeating: not at all 6. Feeling bad about yourself - or that you are a failure or have let yourself or your family down: not at all 7. Trouble concentrating on things, such as reading the newspaper or watching television: not at all 8. Moving or speaking so slowly that other people could have noticed. Or the opposite - being so fidgety or restless that you have been moving around a lot more than usual: not at all 9. Thoughts that you would be better off or of hurting yourself in some way: not at all Total score: 0 Depression Screening Interpretation: Negative Depression Screening Done: Yes Source: Developed by Drs. Breezy Gibson, Nancy Nunez, Jv Palmer and colleagues, with an educational evita from [employer]. Thrive Questionnaire Date Thrive assessed: 04/14/24 I am a: Patient What is your living situation today?: I have a steady place to live Within the past 12 months, did the food you bought not last and you didn't have the money to get more?: Never true Within the past 12 months, did you worry whether your food would run out before you got money to buy more?: Never true Do you have trouble paying for medicines?: No Do you have trouble getting transportation to medical appointments?: No Do you have trouble paying your heating and electricity bill?: No Do you have trouble taking care of your child, family member or friend?: No Do you have trouble with day-to-day activities such as bathing, preparing meals, shopping, managing finances, etc.?: No Are you currently unemployed and looking for a job?: No Are you interested in more education?: No Please select the resources that you would like help with: None Currently or been in a relationship where the following occur: No concerns reported THRIVE Score: 0 AUDIT C Alcohol Use Questionnaire (AUDIT-C) 1. How often do you have a drink containing alcohol?: 2-4 times a month 2. How many drinks containing alcohol do you have on a typical day when you are drinking?: 1 or 2 3. How often do you have six or more drinks on one occasion?: Never Total Score: 2 LUANN-7 AMB Questionnaire LUANN-7 Date LUANN - 7 assessed: 04/21/24 Feeling nervous, anxious, or on edge: 0 = Not at all Not being able to stop or control worryin = Not at all Worrying too much about different things: 0 = Not at all Trouble relaxin = Not at all Being so restless that it is hard to sit still: 0 = Not at all Becoming easily annoyed or irritable: 0 = Not at all Feeling afraid as if something awful might happen: 0 = Not at all Total LUANN-7 score (0-4 normal; 5-9 mild; 10-14 moderate; 15-21 severe): 0 Source: Developed by Drs. Breezy Gibson, Nancy Nunez, Jv Palmer and colleagues, with an educational evita from [employer]. Review of Systems Const Denies body aches, Denies chills, Denies fever(s), Denies headache(s) and Denies poor appetite Eyes Reports no additional complaints ENT Denies dysphagia, Denies dizziness, Denies headache(s) and Denies odynophagia Card Denies chest pain, Denies syncope, Denies edema, Denies irregular heart rhythm, Denies lightheadedness and Denies dyspnea Resp Denies cough and Denies dyspnea GI Denies abdominal pain, Reports constipation, Denies dysphagia, Denies diarrhea, Denies nausea, Denies odynophagia and Denies vomiting Reports no additional complaints Musc Reports no additional complaints and Denies abnormal gait Skin/Breast Reports system reviewed and no additional complaints, except as documented Neuro Denies abnormal gait, Denies dizziness, Denies syncope and Denies headache(s) Psych Reports no additional complaints Physical exam (Primary Care) Vital Signs: Last Vital Signs Temp 97.3 F 04/21/24 08:08 Oxygen Delivery Method Room Air 04/21/24 08:08 BMI result Body Mass Index 41.9 BMI Assessment/Plan discussion: High BMI High, discussed plan: lifestyle, dietary and physical activity Tobacco/Smoking Status: Tobacco use Status Patient Tobacco Use Status Never used Tobacco 04/21/24 08:07 Depression Screening Interpretation: Negative Thrive Assessment: Date of Thrive Assessment Date Thrive assessed 04/14/24 04/14/24 12:11 Currently or been in a relationship where the following occur: No concerns reported Const General: cooperative, healthy appearing, comfortable and no acute distress Orientation/consciousness: patient oriented x3 HENMT Head: Yes normocephalic Ears: hearing grossly normal bilaterally General nose exam: Normal external nose present Eyes General: appearance normal, both eyes and all related structures Conjunctivae: conjunctivae normal Neck Neck: Yes full ROM and Yes no lymphadenopathy Resp Effort & Inspection: normal respiratory effort Auscultation: clear to auscultation bilaterally, no crackles, no rales, no rhonchi and no wheezes Cardio Rate: regular rate Rhythm: regular rhythm Skin General skin exam: no rashes or lesions noted Neuro General: patient oriented x3 Gait exam (Neuro): Normal gait present Extrem General: Yes normal to inspection, Yes full ROM and No edema Psych Affect: normal affect Attitude: cooperative Insight: Good insight present (Psych) Judgement: Good judgement present (Psych) Coding Level of Care Code New Pt Level 4 (32270) Diagnoses ADHD F90.9 Fatty liver K76.0 Cough R05.9 Hives L50.9 Heavy menses N92.0 Abnormal Pap smear of cervix R87.619 Morbid obesity with BMI of 40.0-44.9, adult E66.01; Z68.41 Constipation K59.00 Assessment & Plan Assessment & Plan (1) ADHD: Comment: Rossana Hurley psych Code(s): F90.9 - Attention-deficit hyperactivity disorder, unspecified type Category: Medical Plan: Currently on Adderall continue to follow with psychiatrist has a appointment later this week. (2) Fatty liver: Code(s): K76.0 - Fatty (change of) liver, not elsewhere classified Category: Medical Plan: Continue to monitor LFTs. Healthy diet and regular exercise is encouraged. (3) Cough: Code(s): R05.9 - Cough, unspecified Category: Medical Plan: Cough has been intermittent for many years likely not infectious and denies any other symptoms. Dietary changes focusing on a FODMAP diet are recommended alongside symptom management for possible acid reflux. Pulmonary function testing will clarify the role of asthma in her chronic cough. (4) Hives: Code(s): L50.9 - Urticaria, unspecified Category: Medical Plan: Patient reports intermittent hives without known trigger. She states there primarily on her back and are itchy not painful. The hives will typically self resolve. Referral placed to research microbiologist. Advised to switch to sensitive skin soaps and avoid sent it detergents. (5) Heavy menses: Code(s): N92.0 - Excessive and frequent menstruation with regular cycle Category: Medical Plan: She follows with a tea leaf reader for this concern however she does experience fatigue around her menses and would like an iron profile ordered. Blood work ordered (6) Abnormal Pap smear of cervix: Code(s): R87.619 - Unspecified abnormal cytological findings in specimens from cervix uteri Category: Medical Plan: Continue to follow with gynecology is due to undergo HPV testing (7) Morbid obesity with BMI of 40.0-44.9, adult: Code(s): E66.01 - Morbid (severe) obesity due to excess calories; Z68.41 - Body mass index [BMI] 40.0-44.9, adult Category: Medical Plan: Healthy diet and regular exercise is encouraged. Referral placed to weight management clinic today (8) Constipation: Code(s): K59.00 - Constipation, unspecified Category: Medical Plan: Patient having symptoms consistent with IBS constipation predominant. Reviewed 3 rows of constipation; increase water intake, increase fiber intake and exercise regularly. Also recommending low FODMAP diet and fiber supplement. Plan After reviewing the patient's history and current symptoms, I have outlined a plan to address her varied chronic issues comprehensively. We will perform routine blood tests to screen for thyroid, autoimmune, or metabolic dysfunction that may explain her weight and gastrointestinal symptoms. An EKG has been ordered to establish a baseline before continuing amphetamine treatment for ADHD. This note was constructed using voice recognition software. While every effort has been made to ensure accuracy and rubber goods inspector tester, still areas may have been included sometimes these areas may affect the content or meeting of the given symptoms. Total time spent caring for the patient today was 30 minutes. This includes time spent before the visit reviewing the chart, time spent during the visit, and time spent after the visit and documentation. Patient was informed and verbally consented to the use of an ambient scribe for clinic note documentation during this visit. Orders: Orders PFT pulmonary function test Today R05.9 - Cough, unspecified FORTUNATO Reflex Titer and Pattern Today L50.9 - Urticaria, unspecified Cortisol Random Today E66.9 - Obesity, unspecified Complete Blood Count Auto Diff Today Z00.00 - Encounter for general adult medical examination without abnormal findings Comprehensive Met. Panel Today Z00.00 - Encounter for general adult medical examination without abnormal findings Free T4 (Free Thyroxine) Today Z00.00 - Encounter for general adult medical examination without abnormal findings TSH reflex Free T4 Today Z00.00 - Encounter for general adult medical examination without abnormal findings Vitamin B12 and Folate Today Z00.00 - Encounter for general adult medical examination without abnormal findings Vitamin D 25-OH Total Today Z00.00 - Encounter for general adult medical examination without abnormal findings Lipid Panel Today Z13.220 - Encounter for screening for lipoid disorders IRON PROFILE Today N92.0 - Excessive and frequent menstruation with regular cycle ECG 12 lead EKG Today F90.9 - Attention-deficit hyperactivity disorder, unspecified type Referrals Allergy & Immunology Referral L50.9 - Urticaria, unspecified Medical Weight Management Referral E66.01 - Morbid (severe) obesity due to excess calories, Z68.41 - Body mass index [BMI] 40.0-44.9, adult Medications: New simethicone (Gas Relief (simethicone)) 180 mg PO BID PRN 30 caps 0RF abdominal distention
[2024-04-21 08:08] VITALS: BP 120/60; PULSE 70; TEMP 36.3; O2SAT 95; BMI 41.9
== END 2024-04-21 08:53 | disposition home or self-care (01) ==
DX: R05.9 Cough, unspecified (principal); E66.01 Morbid (severe) obesity due to excess calories; Z68.41 Body mass index [BMI] 40.0-44.9, adult; F90.9 Attention-deficit hyperactivity disorder, unspecified type; K76.0 Fatty (change of) liver, not elsewhere classified; L50.9 Urticaria, unspecified; N92.0 Excessive and frequent menstruation with regular cycle; R87.619 Unspecified abnormal cytological findings in specimens from cervix uteri; K59.00 Constipation, unspecified

== ENCOUNTER 2024-04-29 11:21 | Outpatient (REF) | payer OTHER, SELFPAY ==
[2024-04-29 13:37] LABS: MANUAL DIFF FLAG NO
[2024-04-29 14:02] LABS: Alanine Aminotransferase 13 U/L (0-31); Alkaline Phosphatase 46 U/L (39-117); Anion Gap 12 (12-20); Aspartate Amino Transferase 20 U/L (5-31); Bilirubin Total 0.4 mg/dL (0.0-1.0); Blood Urea Nitrogen 11 mg/dL (9-16); Calcium 8.8 mg/dL (8.4-10.2); Carbon Dioxide 22 mmol/L (22-29); Chloride 110 mmol/L (96-108); Cholesterol 118 mg/dL (<200); Estimated Glomerular Filt Rate > 60; Glucose Random 92 mg/dL (60-115); HDL Cholesterol 53 mg/dL (>40); Iron 63 mcg/dL (30-160); LDL Cholesterol Calculated 59 mg/dL (<100); Percent Iron Saturation 32 % (15-50); Sodium 140 mmol/L (135-145); Total Iron Binding Capacity 194 mcg/dL (228-428); Triglycerides 31 mg/dL (<150); Unsaturated Iron Binding 131 ug/dL
[2024-04-29 14:10] LABS: Cortisol Random 8.7 ug/dL
[2024-04-29 14:16] LABS: Basophils Percent Auto 0.4 % (0-2); Eosinophils Absolute Auto 0.1 X10*3/uL (0.0-0.4); Eosinophils Percent Auto 1.1 % (0-4); Hematocrit 43.4 % (37.0-47.0); Hemoglobin 14.9 g/dl (12.0-16.0); Imm Gran Abs Auto 0.02 X10*3/uL (0.00-0.03); Imm Gran Pct Auto 0.2 % (0.0-0.4); Lymphocytes Absolute Auto 2.4 X10*3/uL (1.2-4.9); Lymphocytes Percent Auto 30.3 % (20-40); Mean Corpuscular HGB Conc 34.3 g/dl (31.0-35.0); Mean Corpuscular Hemoglobin 29.7 pg (27.0-33.0); Mean Corpuscular Volume 86.5 fL (80.0-98.0); Mean Platelet Volume 11.3 fL (9.4-12.3); Monocytes Absolute Auto 0.6 X10*3/uL (0.1-1.2); Monocytes Percent Auto 7.5 % (2-11); Neutrophils Absolute Auto 4.8 x10*3/uL (2.0-8.3); Neutrophils Percent Auto 60.5 % (45-73); Platelet Count 222 X10*3/uL (160-400); Red Blood Count 5.02 X10*6/uL (4.20-5.50); Red Cell Distribution Width 12.6 % (11.0-16.0)
[2024-04-29 14:17] LABS: Free T4 (Free Thyroxine) 1.06 ng/dL (0.71-1.85); TSH reflex Free T4 1.17 uIU/mL (0.32-4.0); Vitamin D 25-OH Total 25.3 ng/mL (>30)
[2024-04-29 14:23] LABS: Folate 6.7 ng/mL (> or = 4.0); Vitamin B12 677 pg/mL (200-900)
[2024-05-03 09:38] LABS: Anti Nuclear Antibody Screen NEGATIVE (NEGATIVE)
== END 2024-04-29 11:22 | disposition home or self-care (01) ==
LOC: HO.HMGCLDS 11:21
DX: Z00.00 Encounter for general adult medical examination without abnormal findings (principal); Z13.220 Encounter for screening for lipoid disorders; E66.9 Obesity, unspecified; N92.0 Excessive and frequent menstruation with regular cycle; L50.9 Urticaria, unspecified
CPT/HCPCS: 36415; 80053; 80061; 82306; 82533; 82607; 82746; 83540; 84439; 84443; 85025; 86038

== ENCOUNTER 2024-06-12 08:11 | Outpatient (AMB) | payer OTHER, SELFPAY ==
--- OUTSIDE RECORDS SUMMARY | 2024-06-12 08:22 | XMS_ITS | Clinical Summary ---
Author Organization [facility] Address [address] [place] [address] Care Team Providers Care Supervisor Respiratory Name Role Phone Melissa Paulino NP Primary Care Provider [phone] Allergies No known active allergies Medications No [...] Advance Directives For more information, please contact: [phone] Latest Code Status on File Code Status Date Activated Date Inactivated Comments Full Code 02/04/2017 10:44 AM 02/04/2017 5:04 PM Th is code status was ascertained in the following way: discussion with patient . Care Teams Supervisor Respiratory Relationship Specialty Start Date End Date Melissa Paulino NP [address] [place] [address] PCP - General Nurse Practitioner 05/19/16
--- OUTSIDE RECORDS SUMMARY | 2024-06-12 08:22 | XMS_ITS | Encounter Summary ---
Author Organization [facility] Address [address] [place] [address] Care Team Providers Care Windows Application Administrator Name Role Phone Pcp, No Primary Care Provider Agustina Moscoso MD Primary Care Provider Unavailable Encounter Details Date Type Department Care Team (Latest Contact Info) Description 02/10/2020 Lab Requisition [facility] [address] Through [address] [place] [address] [address] [place] [address] Kyler Al PA-C [address] [place] [id number] Encounter for laboratory testing for COVID-19 virus [...] of Binge Drinking Not on file 10/18 Comments No Sex and Gender Information Value Date Recorded Sex Assigned at Not on file Legal Sex Female 5:53 PM EDT Gender Identity Female 08/13/2020 10:36 AM EDT [...] in this encounter Results * COVID-19 (SARS-COV-2) (SEMA4) (02/10/2020 5:50 PM EST) COVID-19 RT-PCR NOT-DETEC ANNA Not-Detec anna 02/13/2020 11:40 AM EST [facility] Comment:Interpretation: The viral RNA was not detected, making the COVID-19 diagnosis less likely. Clinical correlation is highly recommended.Final report signed by Alla Ryder, Ph.D., Laboratory DirectorTests performed at [facility] Nasopharyngeal swab / Unknown 02/10/2020 5:50 PM EST 02/10/2020 5:50 PM EST Narrative [facility] - 02/13/2020 11:40 AM EST Performed by [facility] [address] [place] [address], CLIA# [id number] and [place] License# [id number] Kyler Al PA-C MICROBIOLOGY - GENERAL OR DERABLES Final Result [facility] documented in this encounter Visit Diagnoses Diagnosis Encounter for laboratory testing for COVID-19 virus documented in this encounter Care Teams Windows Application Administrator Relationship Specialty Start Date End Date Pcp, No PCP - General General Medicine 07/21/18 02/23/22 Agustina Sanford MD PCP - General 02/24/22 documented as of this encounter
--- OUTSIDE RECORDS SUMMARY | 2024-06-12 08:22 | XMS_ITS | Clinical Summary ---
Author Organization [facility] Address [address] [place] [address] Care Team Providers Care Web Production Assistant Name Role Phone Agustina Sanford MD Primary Care Provider Unavailable Allergies No known active allergies Medications ondansetron (ZOFRAN-ODT) 4 MG disintegrating tabletIndications:Vi ral gastroenteritis Take 1 tablet (4 mg total) by mouth 3 times daily (every 8 hours) as needed for nausea or vomiting. Place tablet on tongue to dissolve. 10 tablet 9 Active Family History Medical History Relation Name [...] Date/Time Associated Diagnosis Comments THINPREP PAP TEST (TIE TAPE MACHINE OPERATOR) WITH HPV REFLEX Routine 03/22/2020 12:00 AM EST from Last 3 Months or Most Recently Relevant to Health Maintenance Results * ThinPrep Pap Test (Smooth Stucco Resurfacer) with HPV Reflex (03/22/2020 12:00 AM EST) Report Report [facility] Comment: Final Gynecological Cytology Report ThinPrep Pap Test with HPV Reflex SPECIMEN ADEQUACY: SATISFACTORY FOR EVALUATION; ENDOCERVICAL/TRANSFORMATION ZONE COMPONENT PRESENT. INTERPRETATION: NEGATIVE FOR INTRAEPITHELIAL LESION OR MALIGNANCY. Electronically Signed: ??Nuria Loyd, [place] (ASCP) CLINICAL INFORMATION: LMP: NG Specimen Source: ??Cervix, Endocervix CPT Codes: 11980 ICD Codes: Z12.4 Other 03/22/2020 03/23/2020 4:3 8 AM EST Kyler Bone MD LAB AMB PATH/CYTO ORDERABL ES Final Result Performing Organization Address City/State/[facility] Co de Phone Number [facility] [address] [place], [place] from Last 3 Months or Most Recently Relevant to Health Maintenance Insurance [facility] - PPO [employer] HMO/POS Care Teams Web Production Assistant Relationship Specialty Start Date End Date Agustina Sanford MD PCP - General 02/24/22
--- OUTSIDE RECORDS SUMMARY | 2024-06-12 08:22 | XMS_ITS | Clinical Summary ---
Author Organization [facility] Address [address] [id number] Care Team Providers Care Skidder Operator Name Role Phone Tc Moreno MD Primary [...] age to complete this topic Care Teams Skidder Operator Relationship Specialty Start Date End Date Tc Moreno MD PCP - General 09/21/22 Tc oMreno MD PCP - Backup PCP Pediatrics 03/18/23
--- NOTE | 2024-06-12 12:02 | A.OFFVIS_ITS ---
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 BMI 41.7: Details: Start time: 11.55am, End time: 12.40pm I spent 40 minutes speaking with the patient on the phone plus an additional 5 minutes reviewing and updating records for a total of 45 minutes HPI Comments Details: Previous weight loss efforts: self diet and exercise, [facility] weight loss program with an appetite suppressant (25lbs) Wakes up: 6am, Sleeps: 11pm Breakfast: 9am (sandwich, or Premier protein bar) Lunch: 12.30-3pm (salad, Hibachi) Dinner: 6-9pm (steak, or chicken, burgers) Snacks: occasionally a yogurt or apple with peanut butter before lunch, same between lunch and dinner, chocolate occasionally after dinner Exercise: none Beverages: Coffee: none, tea: none, soda: diet Coke, juice: iced tea, ETOH: rarely PFSH Medical History (Updated 06/12/24 @ 12:04 by Evert Arias MD) GERD (gastroesophageal reflux disease) History of kidney stones Surgical History (Updated 05/29/24 @ 08:19 by MILENA Galicia) Hx of colonoscopy History of root canal procedure Family History (Updated 05/29/24 @ 08:19 by MILENA Galicia) Mother Diverticulitis Breast cancer Brother Ulcerative colitis Epilepsy Social History Housing: Condominium Alcohol intake: current Alcohol intake frequency: a few times a month Patient Tobacco Use Status: Never used Tobacco e-Cigarette/Vaping Use: Never Used Second Hand Smoke Exposure: No service: No Current occupational status: employed 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) Cognitive needs: No Hearing needs: No Vision needs: Yes (Glasses/Contacts) Telehealth Telehealth Telehealth Platform: Telephone Location of provider rendering services: practice address Location of patient: address on file Patient Identification confirmed using: Name, : Yes Telehealth method: voice only Patient verbally consented to treatment: Yes Patient verbally consented to billing insurance company: Yes Patient informed of any privacy concerns related to visit: Yes Minutes spent on Phone/Video with Pt.: 45 Assessment & Plan Assessment & Plan (1) Morbid obesity with BMI of 40.0-44.9, adult: Code(s): E66.01 - Morbid (severe) obesity due to excess calories; Z68.41 - Body mass index [BMI] 40.0-44.9, adult Category: Medical Plan: 1. We discussed in detail the available therapeutic options: 1) participation in our lifestyle intervention program with a goal of 10% TBWL in 3 months on average, 2) GLP-1 medications in conjunction with our lifestyle program. Her insurance will cover these medications, 3) We also discussed about the lap sleeve gastrectomy. I emphasized the importance of close follow-up, adherence to instructions and good communication. The surgery does not replace the need to change your lifestlyle which is the cause of the obesity problem. The surgery provides the motivation to try again to change your lifestyle, it reduces the appetite and make the transition to a better lifestyle easier and doubles the amount of weight you would lose compared to doing the lifestyle change without the surgery. You will need to be on a liquid diet with protein shakes for 2 weeks before surgery to maximize weight loss and boost your nutritional status to recover better from surgery and also for the first two weeks after surgery to let the stomach heal before we introduce other foods. After the first 2 weeks we will introduce protein bars and soft foods like scrambled eggs, cottage cheese and yogurt and after the 6th week will introduce meat, fish and cooked vegetables in small amounts. Over time you should be able to eat everything in small amounts. Side effects like nausea, vomiting, heartburn or abdominal pain are not common in the practice unless you are not following in the practice. This operation requires lifetime commitment to following in our practice and communication with me. You will much less weight and experience side effects if you don?t communicate or not following in the practice. Complications are rare and in our practice is about 1/10 of the national average. The patient will consider these options and get back to me as to which option she will choose.
[2024-06-12 12:33] VITALS: BMI 41.6
== END 2024-06-12 12:40 | disposition home or self-care (01) ==
LOC: HO.HBS 08:11
PROVIDERS: Visit Provider Surgery
DX: E66.01 Morbid (severe) obesity due to excess calories (principal); E66.813 Obesity, class 3; Z68.41 Body mass index [BMI] 40.0-44.9, adult
CPT/HCPCS: 98010

== ENCOUNTER → 2024-06-12 08:11 | Outpatient (BNVA) | payer OTHER, SELFPAY | PROVIDERS: Visit Provider Surgery ==